=== PATIENT | female | born 1935 | race Caucasian/White ===

== ENCOUNTER 2021-09-04 00:33 | Inpatient (IN) | payer MEDICARE, BC ==
[~2021-09-04] VITALS: Ht 142.2 cm; Wt 62.6 kg
--- NOTE | 2021-09-04 01:00 | NUR ---
pt A/o x3 able to speak in complete sentences denies c/p. On RA pt is 83 percent placed on 4 liters nc sat is 92 percent.
--- NOTE | 2021-09-04 01:10 | NUR ---
Dr. Hu at bedside for MSE
[2021-09-04] MEDS ORDERED: IV NORMAL SALINE 1000 ML BAG IV ONE (01:15)
[2021-09-04] MEDS ORDERED: AZITHROMYCIN IV 500 MG in IV DEXTROSE 5% 250 ML IV ONE (01:15)
[2021-09-04] MEDS ORDERED: levoFLOXacin 750MG/D5W 150 ML IV ONE ×2 (01:15→01:29)
[2021-09-04 01:18] LABS: HEMATOCRIT 32.7 % (31.2-41.9); MEAN CORPUSCULAR HEMOGLOBIN 32.6 uug (24.7-32.8); MEAN CORPUSCULAR VOLUME 100.2 fL (75.5-95.3); PLATELET COUNT (AUTO) 629 K/uL (179-408)
[2021-09-04] MEDS ORDERED: AMLO2.5T4 PO (01:20)
[2021-09-04] MEDS ORDERED: POTA10TA10 PO (01:21)
[2021-09-04] MEDS ORDERED: RAMI2.5C55 PO (01:21)
[2021-09-04] MEDS ORDERED: HYDR12.55 PO (01:21)
--- NOTE | 2021-09-04 01:21 | NUR ---
Patient does not remember all home medication and doses.
[2021-09-04] MEDS ORDERED: AZITHROMYCIN 500MG/ D5W 250ML IVPB **ER PYXIS ONLY IV ONE (01:29)
--- NOTE | 2021-09-04 01:30 | NUR ---
pt daughter at bedside speaking with Dr. Hu.
[2021-09-04 01:32] LABS: ABG BASE EXCESS -4.9 mmol/L; ABG PCO2 31.1 mmHg (35.0-45.0); ABG PH 7.403 (7.350-7.450); ABG PO2 72.6 mmHg (75.0-100.0); ABG SITE RIGHT RADIAL; ABG TOTAL HEMOGLOBIN 10.8 G/dL (12.0-16.0); COHb 0.8 % (0.5-1.5); MetHb 0.3 % (0.0-1.5); O2Hb 93.2 % (94.0-97.0); VENT MODE Nasal Cannula
--- NOTE | 2021-09-04 01:35 | NUR ---
radiology at bedside.
[2021-09-04 01:37] LABS: BILIRUBIN,DIRECT 0.1 mg/dL (0.0-0.2); BILIRUBIN,TOTAL 0.4 mg/dL (0.2-1.0); CREATININE 1.2 mg/dL (0.6-1.3); POTASSIUM 5.6 mmol/L (3.5-5.1); TOTAL PROTEIN, SERUM 7.1 g/dL (6.4-8.2)
--- NOTE | 2021-09-04 02:30 | NUR ---
pt awake alert denies pain.
[2021-09-04] MEDS ORDERED: RIVA15TA PO (02:46)
--- NOTE | 2021-09-04 02:46 | NUR ---
Paged Epic panel conveyor line battery charger, waiitng for Gail Strong ENGAGEMENT LEAD to call back.
--- NOTE | 2021-09-04 03:02 | NUR ---
Gail Strong OUTCOME ANALYST accepted pateint to [facility].
--- NOTE | 2021-09-04 03:52 | NUR ---
pt transferrd to a hospital bed.
--- NOTE | 2021-09-04 05:46 | NUR ---
pt repositioned denies pain. Continues on 6 liters nc.
[2021-09-04] MEDS: CEFTRIAXONE 1 G in IV DEXTROSE 5% 50 ML IV SCH (06:54)
[2021-09-04] MEDS ORDERED: CEFTRIAXONE /D5W 50ML IVPB **ER PYXIS IV ONE (07:02)
--- NOTE | 2021-09-04 07:09 | NUR ---
report given to Farhat MARVIN.
[2021-09-04 07:20] LABS: MEAN CORPUSCULAR VOLUME 100.7 fL (75.5-95.3); PLATELET COUNT (AUTO) 470 K/uL (179-408)
[2021-09-04 07:27] LABS: CREATININE 1.1 mg/dL (0.6-1.3); POTASSIUM 4.8 mmol/L (3.5-5.1)
[2021-09-04 07:43] LABS: BILIRUBIN,TOTAL 0.3 mg/dL (0.2-1.0); MAGNESIUM 1.4 mg/dL (1.8-2.4); PHOSPHOROUS 3.7 mg/dL (2.5-4.9); TOTAL PROTEIN, SERUM 5.9 g/dL (6.4-8.2)
--- NOTE | 2021-09-04 07:44 | NUR ---
Changed pt's diaper.
[2021-09-04 07:45] LABS: THYROID STIMULATING HORMONE 3.208 mIU/mL (0.358-3.740)
--- NOTE | 2021-09-04 08:28 | NUR ---
Called report to SHAVONNE Coleman.
--- NOTE | 2021-09-04 08:35 | NUR ---
Received patient report from SHAVONNE Dougherty. Patient arrived to unit on [facility] [place] receiving 5L of Oxygen via Nasal Canula. Bed left in lowest position with call light within reach. Will continue to monitor patient throughout shift.
[2021-09-04 09:05] VITALS: BP 116/55
[2021-09-04] MEDS: MAGNESIUM SULFATE/D5W 100 ML IV SCH ×4 (10:29→13:58)
[2021-09-04 11:50] VITALS: BP 114/57
[2021-09-04] MEDS ORDERED: DEXTROSE 50% 50 ML DISP.SYRIN IV PRN (14:30)
[2021-09-04 16:00] VITALS: BP 129/50
[2021-09-04] MEDS ORDERED: Z GUARD REMEDY PASTE 57 GM TUBE TOP PRN (16:30)
[2021-09-04] MEDS: BLOOD SUGAR DIAGNOSTIC 1 EACH STRIP VI SCH ×2 (16:36→21:25)
[2021-09-04] MEDS: INSULIN REGULAR, HUMAN 300 UNIT/3 ML VIAL SQ PRN (16:39)
[2021-09-04] MEDS: RIVAROXABAN 10 MG TABLET PO SCH (17:46)
[2021-09-04 20:00] VITALS: BP 127/62
[2021-09-04] MEDS: IV D5 1/2 NS 1000 ML 1,000 ML IV PRN (23:20)
--- NOTE | 2021-09-04 23:45 | NUR ---
Patient in bed AALox4 , noted with productive cough.No s/s of respiratory distress noted. O2 at 4LPM via NC saturating at 95%. notified of patient's cough.New ordered received noted and carried out.Will continue to monitor.
[2021-09-05] VITALS: BP 117/58
[2021-09-05] MEDS: GUAIFENESIN SUGAR FREE 100 MG/5 ML UDC PO PRN (00:01)
[2021-09-05] MEDS: IPRATROPIUM BROMIDE 0.5 MG/2.5 ML NEBU NEB PRN ×2 (01:04→10:59)
[2021-09-05] MEDS: ALBUTEROL SULFATE 2.5 MG/ 0.5 ML NEBU NEB PRN ×2 (01:05→10:59)
[2021-09-05] MEDS: CEFTRIAXONE 1 G in IV DEXTROSE 5% 50 ML IV SCH (02:58)
[2021-09-05 04:00] VITALS: BP 118/63
[2021-09-05] MEDS: BLOOD SUGAR DIAGNOSTIC 1 EACH STRIP VI SCH ×4 (06:49→20:46)
[2021-09-05 06:53] LABS: HEMATOCRIT 25.8 % (31.2-41.9); MEAN CORPUSCULAR HEMOGLOBIN 32.9 uug (24.7-32.8); MEAN CORPUSCULAR VOLUME 100.6 fL (75.5-95.3); PLATELET COUNT (AUTO) 343 K/uL (179-408)
[2021-09-05 07:07] LABS: CREATININE 0.8 mg/dL (0.6-1.3); MAGNESIUM 2.1 mg/dL (1.8-2.4); PHOSPHOROUS 3.6 mg/dL (2.5-4.9); POTASSIUM 3.9 mmol/L (3.5-5.1)
--- NOTE | 2021-09-05 08:00 | NUR ---
RECEIVED PATIENT IN BED AWAKE ALERT AND ORIENTED WITH O2 AT 4L/M BY NASAL CANULLA WITH NO SHORTNESS OF BREATH AT THIS TIME.NO S/S OF HYPO/HYPERGLYCEMIC REACTIONS AT THIS TIME.REMAIN ON IVF WITH NO S/S OF INFILTERATION ON SITE.TELE IS SR CALL LIGHTS AND HER PERSONAL BELONGINGS ARE WITHIN EASY REACH WILL CONTINUE TO OBSERVE..
[2021-09-05] MEDS: INSULIN REGULAR, HUMAN 300 UNIT/3 ML VIAL SQ PRN ×3 (08:22→17:21)
[2021-09-05 12:00] VITALS: BP 135/66
[2021-09-05] MEDS ORDERED: TAMSULOSIN HCL 0.4 MG CAP.SR.24H PO PRN (12:30)
[2021-09-05] MEDS ORDERED: BENZONATATE 100 MG CAPSULE PO PRN (12:45)
[2021-09-05] MEDS: BENZONATATE 100 MG CAPSULE PO SCH ×2 (12:58→21:02)
--- NOTE | 2021-09-05 13:01 | NUR ---
DR QUIROZ HERE TO SEE PATIENT AND STATED THAT SHE WANTS PULMONARY CONSULT ON THIS PATIENT BUT SINCE DR CUNNINGHAM HAS MADE ROUNDS ALREADY IT WILL BE OKAY FOR DR BACH TO SEE PATIENT TOMORROW WILL ENDORSE.PATIENT IS COUGHING ON AND OFF MD AWARE WITH NEW ORDER FOR SHAY QUINTEROS AND NOTED.
--- NOTE | 2021-09-05 15:00 | NUR ---
CALL RECEIVED FROM [facility] TRUCK DRIVER STATED THAT PATIENT WILL BE TRANSFERED TO [facility] PER PATIENTS REQUEST STATED WILL BE PICKED UP ABOUT 1700.PATIENTS DAUGHTER LIZZETH HERE AND AWARE.
[2021-09-05 16:01] VITALS: BP 137/69
--- NOTE | 2021-09-05 16:30 | NUR ---
PER THAD AUTOMOBILE RADIO REPAIRER [facility] HAS NOT CALLED YET WITH ROOM NUMBER WILL PLACE THE AMBULANCE ON WILL CALL AND SINCE SHE IS NOW OFF [facility] WILL CALL US WITH INFORMATION RE BED ASSIGNMENT PATIENTS DAUGHTER HERE AND AWARE
[2021-09-05] MEDS: RIVAROXABAN 10 MG TABLET PO SCH (17:18)
--- NOTE | 2021-09-05 18:16 | NUR ---
NO CALLS YET FROM [facility] WILL ENDORSE.
[2021-09-05] MEDS: Z GUARD REMEDY PASTE 57 GM TUBE TOP SCH (20:36)
[2021-09-05] MEDS: IV D5 1/2 NS 1000 ML 1,000 ML IV PRN (20:39)
[2021-09-05 20:50] VITALS: BP 124/66
[2021-09-05] MEDS ORDERED: ALPRAZOLAM 0.25 MG TABLET PO ONE (21:00)
[2021-09-06 00:31] VITALS: BP 123/48
[2021-09-06] MEDS: CEFTRIAXONE 1 G in IV DEXTROSE 5% 50 ML IV SCH (03:41)
[2021-09-06] MEDS: GUAIFENESIN SUGAR FREE 100 MG/5 ML UDC PO PRN (03:48)
[2021-09-06 04:35] VITALS: BP 154/71
[2021-09-06] MEDS ORDERED: FUROSEMIDE 40 MG/4 ML VIAL IV ONE (06:15)
[2021-09-06] MEDS: methylPREDNISolone SOD SUCC 40 MG/ML VIAL IV SCH ×2 (06:17→17:30)
[2021-09-06] MEDS: BENZONATATE 100 MG CAPSULE PO SCH ×3 (06:17→21:28)
[2021-09-06] MEDS: BLOOD SUGAR DIAGNOSTIC 1 EACH STRIP VI SCH ×4 (06:34→20:51)
[2021-09-06 07:47] LABS: HEMATOCRIT 29.8 % (31.2-41.9); MEAN CORPUSCULAR HEMOGLOBIN 32.9 uug (24.7-32.8); MEAN CORPUSCULAR VOLUME 99.9 fL (75.5-95.3); PLATELET COUNT (AUTO) 355 K/uL (179-408)
--- NOTE | 2021-09-06 07:50 | NUR ---
Pt very anxious, slept intermittently. Called Ej last night for update on bed, still none available. Pt started to desat to 77% this morning, p-laced on 8L simple mask and is now satting at 93%. Gail Strong STATISTICS MANAGER notified with orders for Solumedrol 40mg BID and Lasix 40mg X 1. Pt able to make needs known. IV site intact. Denies chest pain. Will endorse to day shift.
[2021-09-06 08:02] LABS: CREATININE 0.7 mg/dL (0.6-1.3); MAGNESIUM 1.6 mg/dL (1.8-2.4); PHOSPHOROUS 3.1 mg/dL (2.5-4.9); POTASSIUM 3.4 mmol/L (3.5-5.1)
[2021-09-06] MEDS: INSULIN REGULAR, HUMAN 300 UNIT/3 ML VIAL SQ PRN ×3 (08:18→17:30)
[2021-09-06] MEDS: Z GUARD REMEDY PASTE 57 GM TUBE TOP SCH ×2 (08:20→20:49)
--- NOTE | 2021-09-06 08:22 | NUR ---
PATIENT IS IN BED VERY ANXIOUS YELLING OUT UNABLE TO REDIRECT ON O2 BY MASK AT 8L/M SAT IS 93-[address] THIS TIME [address] MARYA KEMP IS HERE AND AWARE AND STATED TO GIVE HER XANAX AGAIN ONE TIME ORDER AND NOTED IV SITE IS NOT FUNCTIONING WITH ORDER FOR MID LINE AND NOTED RESIST COATER DEVELOPER NOTIFIED.
[2021-09-06] MEDS ORDERED: ALPRAZOLAM 0.25 MG TABLET PO ONE (08:30)
--- NOTE | 2021-09-06 08:37 | NUR ---
REMAIN ANXIOUS FIXED AND MADE COMFORTABLE MEDICATED WITH XANAX ORDERED O2 WAS CHANGED TO NASAL CANULA SO SHE CAN EAT HER BREAKFAST APPETITE IS POOR SAT IS 87 CHANGED TO SIMPLE MASK AT 10 LITERS AT THIS TIME
--- NOTE | 2021-09-06 09:40 | NUR ---
PATIENTS DAUGHTER LIZZETH HERE UPDATED HER ON HER MOMS CONDITION HAS ORDER FOR MAGNESSIUM BUT HAS NO IV SITE DUE TO UNABLE TO REINSERT AWAITING FOR THE MID LINE NURSE TO COME IN AND INSERT A MIDLINE.
[2021-09-06] MEDS ORDERED: POTASSIUM CHLORIDE 20 MEQ TAB.PRT.SR PO ONE (10:00)
--- NOTE | 2021-09-06 10:19 | NUR ---
MAG LEVEL IS 1.6 AND POTASSIUM IS 3.4 WITH ORDERS STILL AWAITING FOR THE MID LINE NURSE PATIENT HAS NO IV ACCESS AT THIS TIME.
[2021-09-06] MEDS: ALBUTEROL SULFATE 2.5 MG/ 0.5 ML NEBU NEB PRN (10:43)
[2021-09-06] MEDS: IPRATROPIUM BROMIDE 0.5 MG/2.5 ML NEBU NEB PRN (10:43)
[2021-09-06 12:00] VITALS: BP 131/71
--- NOTE | 2021-09-06 12:16 | NUR ---
PATIENT IS GETTING VERY ANXIOUS AND VERY DEPRESSED FAMILY AT THE BEDSIDE AND ASKING FOR MORE XANAX CALLED DR QUIROZ WITH ORDER TO GIVE ATIVAN ONE MG ONE TIME AND NOTED
[2021-09-06] MEDS ORDERED: LORAZEPAM 1 MG TABLET PO ONE (12:30)
[2021-09-06 13:52] LABS: LYMPHOCYTES % (MANUAL) 15 % (20-40); MONOCYTES % (MANUAL) 4 % (2-10); NEUTROPHILS % (MANUAL) 81 % (42-75)
--- NOTE | 2021-09-06 14:02 | NUR ---
DR QUIROZ HERE SEEN PATIENT WITH NEW ORDERS AND NOTED.DAUGHTER AT BEDSIDE AND AWARE OF THE PLAN OF CARE.
[2021-09-06 16:16] VITALS: BP 138/83
--- NOTE | 2021-09-06 16:30 | NUR ---
STILL AWAITING FOR AVAILABILITY OF BED FROM [facility] PER ALTERATION TAILOR [facility] WILL CALL WHEN THEY HAVE BED AVAILABLE PATIENTS DAUGHTER STEPHANIE HERE AND AWARE.
--- NOTE | 2021-09-06 17:41 | NUR ---
PATIENTS OWN MEDICATION XALATAN RECEIVED DR GABRIELLA BA SENT TO THE PHARMACY.
--- NOTE | 2021-09-06 17:45 | NUR ---
STILL AWAITING FOR MIDLINE PLACEMENT AT THIS TIME BLASTING HELPER AWARE STILL UNABLE TO INFUSE THE MAGNESSIUM ORDERED.
[2021-09-06] MEDS: MAGNESIUM SULFATE/D5W 100 ML IV SCH ×2 (18:14→19:53)
--- NOTE | 2021-09-06 18:14 | NUR ---
MID LINE NURSE HERE AND GAUGE 18 INSERTED TO HER RIGHT FOREARM AND MAGNESSIUM ONE GRAM STARTED AT THIS TIME ORDERED.
[2021-09-06] MEDS: ALBUTEROL SULFATE 2.5 MG/ 0.5 ML NEBU NEB SCH (20:05)
[2021-09-06 20:37] VITALS: BP 132/76
[2021-09-06] MEDS: LATANOPROST EACHEYE SCH (20:49)
[2021-09-07] MEDS: ALBUTEROL SULFATE 2.5 MG/ 0.5 ML NEBU NEB SCH ×4 (02:05→19:12)
--- NOTE | 2021-09-07 02:13 | NUR ---
Yazmin from [facility] [phone] called that they don't have no bed available up to this time. Will endorse accordingly tomorrow.
--- NOTE | 2021-09-07 02:21 | NUR ---
Patient O2 titrated to 10L with simple mask saturating 96%.
[2021-09-07] MEDS: CEFTRIAXONE 1 G in IV DEXTROSE 5% 50 ML IV SCH (02:59)
[2021-09-07 03:53] VITALS: BP 113/60
[2021-09-07] MEDS: BENZONATATE 100 MG CAPSULE PO SCH ×3 (06:16→21:20)
[2021-09-07] MEDS: BLOOD SUGAR DIAGNOSTIC 1 EACH STRIP VI SCH ×4 (06:37→20:42)
--- NOTE | 2021-09-07 06:52 | NUR ---
Shift End Report: Vs stable. No complaint presented. No apparent distress noted. All needs attended and met. No s/s of hypo/hyperglycemia. Close physical /visual supervision rendered for safety. Patient attempted several times to get out of bed. Safety measures and fall prevention maintained. Continue care as planned.
[2021-09-07 06:59] LABS: CREATININE 0.7 mg/dL (0.6-1.3); MAGNESIUM 2.3 mg/dL (1.8-2.4); POTASSIUM 3.6 mmol/L (3.5-5.1)
[2021-09-07] MEDS: IPRATROPIUM BROMIDE 0.5 MG/2.5 ML NEBU NEB PRN (08:19)
[2021-09-07] MEDS: methylPREDNISolone SOD SUCC 40 MG/ML VIAL IV SCH ×2 (08:37→16:55)
[2021-09-07] MEDS: Z GUARD REMEDY PASTE 57 GM TUBE TOP SCH ×2 (08:37→20:47)
--- NOTE | 2021-09-07 10:00 | NUR ---
Dr hartman here to see patient. New order received and carried out. Pt is in no acute distress. Frequent turning q2 hrs implemented. Aspiration precaution implemented. PT tolerating Simple mask@ 10Lit with sat of 97% Call light is within reach.
--- NOTE | 2021-09-07 10:05 | NUR ---
civil cad tech talked to Dr Parikh . Dr Parikh said since the patient is on Xirolto, he needed 2 days holding period. Unable to perform Thoracentesis today. The tech will contact Dr Lovell for procedure to perform tomorrow. SHAVONNE Bedolla noted.
[2021-09-07 12:00] VITALS: BP 123/63
[2021-09-07] MEDS: INSULIN REGULAR, HUMAN 300 UNIT/3 ML VIAL SQ PRN ×2 (12:21→16:59)
[2021-09-07 16:00] VITALS: BP 130/67
[2021-09-07] MEDS: LORAZEPAM 0.5 MG TABLET PO PRN ×2 (17:09→23:23)
--- NOTE | 2021-09-07 19:30 | NUR ---
Receive patient lying in bed. AAOx2-3. In no acute distress. Denies any pain or SOB. On O2 at 10LPM via simple mask in place. O2 sat at 93%. HOB elevated. Midline on right upper arm intact and patent. NSR on tele with HR of 99/min. 1:1 sitter on site. No behavioral issues noted at this time. Patient calm and cooperative. Needs assessed and attended to. Safety measure initiated. Continue to monitor.
[2021-09-07 20:00] VITALS: BP 153/72
[2021-09-07] MEDS: LATANOPROST EACHEYE SCH (20:45)
[2021-09-07] MEDS: INSULIN REGULAR, HUMAN 300 UNITS/3 ML VIAL SQ PRN (20:46)
[2021-09-08] VITALS: BP 145/75
[2021-09-08] MEDS: ALBUTEROL SULFATE 2.5 MG/ 0.5 ML NEBU NEB SCH ×4 (00:35→19:31)
[2021-09-08] MEDS: CEFTRIAXONE 1 G in IV DEXTROSE 5% 50 ML IV SCH (02:43)
--- NOTE | 2021-09-08 03:24 | NUR ---
Telephone call from Yazmin from [facility] and stated that they are at full capacity at this time and does not have a bed for patient. Will relay message to day shift RN to inform CM.
[2021-09-08 05:18] VITALS: BP 140/73
[2021-09-08] MEDS: BENZONATATE 100 MG CAPSULE PO SCH ×3 (06:00→21:02)
[2021-09-08] MEDS: LORAZEPAM 0.5 MG TABLET PO PRN ×3 (06:01→22:54)
--- NOTE | 2021-09-08 06:21 | NUR ---
AAOx2 with periods of confusion this AM. Lorazepam 0.5mg PO given q6hrs PRN per order for anxiety. In no acute distress. Denies any pain or SOB. On O2 at 10LPM via simple mask in place. O2 sat at 93%. HOB elevated. Midline on right upper arm intact and patent. No adverse reaction noted from IV antibiotics. Sinus tachy on tele with HR of 102/min. 1:1 sitter on site. Needs assessed and attended to. Safety measure maintained.
[2021-09-08] MEDS: BLOOD SUGAR DIAGNOSTIC 1 EACH STRIP VI SCH ×4 (06:32→20:36)
[2021-09-08] MEDS: IPRATROPIUM BROMIDE 0.5 MG/2.5 ML NEBU NEB PRN (07:30)
[2021-09-08 07:50] LABS: MEAN CORPUSCULAR HEMOGLOBIN 32.9 uug (24.7-32.8); PLATELET COUNT (AUTO) 371 K/uL (179-408)
[2021-09-08 08:00] VITALS: BP 157/78
[2021-09-08 08:00] LABS: CREATININE 0.7 mg/dL (0.6-1.3); MAGNESIUM 2.1 mg/dL (1.8-2.4); PHOSPHOROUS 2.8 mg/dL (2.5-4.9); POTASSIUM 3.5 mmol/L (3.5-5.1)
[2021-09-08] MEDS: methylPREDNISolone SOD SUCC 40 MG/ML VIAL IV SCH ×2 (08:31→16:04)
[2021-09-08] MEDS: Z GUARD REMEDY PASTE 57 GM TUBE TOP SCH ×2 (08:33→20:40)
[2021-09-08 11:30] VITALS: BP 165/78
[2021-09-08 16:00] VITALS: BP 150/80
[2021-09-08] MEDS: INSULIN REGULAR, HUMAN 300 UNIT/3 ML VIAL SQ PRN (16:02)
[2021-09-08] MEDS: VANCOMYCIN IV 1,000 MG in IV DEXTROSE 5% 250 ML IV SCH (17:33)
--- NOTE | 2021-09-08 19:30 | NUR ---
Receive patient lying in bed. Asleep, but arouse to verbal stimuli. Alert x2 with periods of confusion. In no apparent distress. No complain of pain or SOB. On O2 at 10LPM via simple mask in place. O2 sat at 96%. HOB elevated. Noted with occasional productive cough and ab;le to expectorate phlegm. Midline on right upper arm intact and patent. NSR on tele with HR of 96/min. 1:1 sitter on site. Patient calm and cooperative. Needs assessed and attended to. Safety measure initiated. Continue to monitor.
[2021-09-08 19:32] VITALS: BP 144/60
[2021-09-08] MEDS: LATANOPROST EACHEYE SCH (20:36)
[2021-09-08] MEDS: INSULIN REGULAR, HUMAN 300 UNITS/3 ML VIAL SQ PRN (20:39)
[2021-09-08] MEDS ORDERED: INSULIN GLARGINE,HUM 300 UNITS/3 ML CARTRIDGE SQ SCH (21:00)
[2021-09-08] MEDS: GUAIFENESIN SUGAR FREE 100 MG/5 ML UDC PO PRN (22:54)
[2021-09-09 00:07] VITALS: BP 136/85
[2021-09-09] MEDS: ALBUTEROL SULFATE 2.5 MG/ 0.5 ML NEBU NEB SCH ×4 (01:07→19:52)
[2021-09-09 04:00] VITALS: BP 134/70
[2021-09-09] MEDS: BENZONATATE 100 MG CAPSULE PO SCH ×3 (06:17→21:07)
--- NOTE | 2021-09-09 06:24 | NUR ---
AAOx2 with periods of confusion. Lorazepam 0.5mg PO given x1 and effective. patient slept well after. In no acute distress. Denies any pain or SOB. On O2 at 10LPM via simple mask in place. O2 sat at 96%. Midline on right upper arm intact and patent. NSR on tele with HR of 85/min. 1:1 sitter on site. Safety measure maintained.
[2021-09-09] MEDS: BLOOD SUGAR DIAGNOSTIC 1 EACH STRIP VI SCH ×4 (06:36→20:48)
[2021-09-09] MEDS: IPRATROPIUM BROMIDE 0.5 MG/2.5 ML NEBU NEB PRN ×3 (07:53→19:52)
--- NOTE | 2021-09-09 08:00 | NUR ---
Pt is in no acute distress. Frequent turning q 2 hrs implemented. Sitter at bedside. Aspiration precaution implemented. Call light light is within reach.
[2021-09-09] MEDS: Z GUARD REMEDY PASTE 57 GM TUBE TOP SCH ×2 (08:18→20:48)
[2021-09-09] MEDS: methylPREDNISolone SOD SUCC 40 MG/ML VIAL IV SCH ×2 (08:18→17:44)
[2021-09-09] MEDS: INSULIN REGULAR, HUMAN 300 UNIT/3 ML VIAL SQ PRN ×3 (08:44→17:50)
--- NOTE | 2021-09-09 12:00 | NUR ---
PT tolerated physical therapy session. Pt remains on 10lit n/c with sat of 97%.
[2021-09-09] MEDS: LORAZEPAM 0.5 MG TABLET PO PRN ×2 (12:31→18:51)
[2021-09-09] MEDS: INSULIN GLARGINE,HUM 300 UNITS/3 ML CARTRIDGE SQ SCH ×2 (12:46→20:52)
[2021-09-09 15:35] LABS: *BILIRUBIN,URIN NEGATIVE (NEGATIVE); *BLOOD, URINE NEGATIVE (NEGATIVE); *CLARITY,URINE CLEAR (CLEAR); *COLOR,URINE YELLOW (YELLOW); *KETONES,URINE NEGATIVE (NEGATIVE); *UROBILINOGEN,URINE 0.2 E.U./dl (NORMAL); LEUKOCYTE ESTERASE ,URINE NEGATIVE (NEGATIVE); NITRITE, URINE NEGATIVE (NEGATIVE); PH,URINE 6.5 (5.0-8.0); UGLUCOSE TRACE (NEGATIVE)
[2021-09-09 15:44] LABS: HEMATOCRIT 30.9 % (31.2-41.9); MEAN CORPUSCULAR HEMOGLOBIN 32.7 uug (24.7-32.8); MEAN CORPUSCULAR VOLUME 98.4 fL (75.5-95.3); PLATELET COUNT (AUTO) 312 K/uL (179-408)
[2021-09-09 15:57] LABS: CREATININE 0.7 mg/dL (0.6-1.3); MAGNESIUM 1.6 mg/dL (1.8-2.4); PHOSPHOROUS 2.2 mg/dL (2.5-4.9); POTASSIUM 2.9 mmol/L (3.5-5.1)
[2021-09-09 16:32] VITALS: BP 150/71
[2021-09-09] MEDS ORDERED: POTASSIUM CHLORIDE 20 MEQ TAB.PRT.SR PO ONE (17:00)
[2021-09-09] MEDS ORDERED: NEUTRA PHOS PACKET PO ONE (17:00)
[2021-09-09] MEDS: MAGNESIUM SULFATE/D5W 100 ML IV SCH ×2 (17:44→19:37)
--- NOTE | 2021-09-09 18:30 | NUR ---
Dr blair here to see patient and spoke with Karen daughter at bedside and gave update. Notice pt coughing when eating even with HOB @ 90 deg.
--- NOTE | 2021-09-09 19:30 | NUR ---
Receive patient lying in bed. AAOx2-3 with periods of forgetfulness. In no apparent distress. No complain of pain or SOB. On O2 at 10LPM via simple mask in place. O2 sat at 94%. No cough noted at this time. Midline on right upper arm intact and patent. NSR on tele with HR of 100/min. Needs assessed and attended to. Safety measure initiated and call light within reached.
[2021-09-09 20:00] VITALS: BP 124/83
[2021-09-09] MEDS: LATANOPROST EACHEYE SCH (20:47)
[2021-09-09] MEDS: INSULIN REGULAR, HUMAN 300 UNITS/3 ML VIAL SQ PRN (20:50)
[2021-09-09] MEDS: VANCOMYCIN IV 1,000 MG in IV DEXTROSE 5% 250 ML IV SCH (22:21)
[2021-09-10] VITALS: BP 160/77
[2021-09-10] MEDS: ALBUTEROL SULFATE 2.5 MG/ 0.5 ML NEBU NEB SCH ×5 (01:25→19:13)
[2021-09-10 04:00] VITALS: BP 128/80
--- NOTE | 2021-09-10 05:43 | NUR ---
Patient slept well last night. In no apparent distress. No complain of pain or SOB. On O2 at 10LPM via simple mask in place. O2 sat at 95%. No cough noted. Midline on right upper arm intact and patent. NO adverse effect noted from IV antibiotic. NSR on tele with HR of 81/min. Safety measure maintained and call light within reached.
[2021-09-10] MEDS: BENZONATATE 100 MG CAPSULE PO SCH ×3 (06:12→21:34)
[2021-09-10] MEDS: BLOOD SUGAR DIAGNOSTIC 1 EACH STRIP VI SCH ×4 (06:34→20:59)
--- NOTE | 2021-09-10 07:33 | NUR ---
Received patient report from Emilee MARVIN. Received patient sleeping and resting comfortably in bed. Patient is currently receiving 10L of oxygen via Mask. Bed left in lowest position with call light within reach. Comfort measures provided. Will continue to monitor patient throughout shift.
[2021-09-10 07:55] LABS: ABG BASE EXCESS 10.1 mmol/L; ABG HCO3 35.1 mmol/L; ABG PCO2 49.4 mmHg (35.0-45.0); ABG PH 7.469 (7.350-7.450); ABG PO2 52.5 mmHg (75.0-100.0); ABG SITE RIGHT RADIAL; ABG TOTAL HEMOGLOBIN 10.9 G/dL (12.0-16.0); COHb 0.1 % (0.5-1.5); MetHb 0.3 % (0.0-1.5); O2Hb 86.8 % (94.0-97.0)
[2021-09-10] MEDS: methylPREDNISolone SOD SUCC 40 MG/ML VIAL IV SCH ×2 (08:01→16:25)
[2021-09-10] MEDS: INSULIN GLARGINE,HUM 300 UNITS/3 ML CARTRIDGE SQ SCH ×2 (08:03→21:06)
[2021-09-10] MEDS: INSULIN REGULAR, HUMAN 300 UNIT/3 ML VIAL SQ PRN ×2 (08:05→11:46)
[2021-09-10] MEDS: IPRATROPIUM BROMIDE 0.5 MG/2.5 ML NEBU NEB PRN ×2 (08:20→13:58)
[2021-09-10 10:19] LABS: HEMATOCRIT 35.7 % (31.2-41.9); MEAN CORPUSCULAR HEMOGLOBIN 33.1 uug (24.7-32.8); MEAN CORPUSCULAR VOLUME 101.5 fL (75.5-95.3); PLATELET COUNT (AUTO) 209 K/uL (179-408)
[2021-09-10] MEDS: Z GUARD REMEDY PASTE 57 GM TUBE TOP SCH ×2 (10:36→21:10)
[2021-09-10 12:00] VITALS: BP 154/76
[2021-09-10] MEDS: LORAZEPAM 0.5 MG TABLET PO PRN ×2 (13:10→20:53)
[2021-09-10 16:17] VITALS: BP 155/77
[2021-09-10 20:00] VITALS: BP 153/74
[2021-09-10] MEDS: LATANOPROST EACHEYE SCH (21:02)
[2021-09-10] MEDS: INSULIN REGULAR, HUMAN 300 UNITS/3 ML VIAL SQ PRN (21:06)
[2021-09-11] VITALS: BP 152/71
[2021-09-11] MEDS: ALBUTEROL SULFATE 2.5 MG/ 0.5 ML NEBU NEB SCH ×4 (00:34→19:40)
[2021-09-11 04:00] VITALS: BP 158/87
[2021-09-11] MEDS: VANCOMYCIN IV 1,000 MG in IV DEXTROSE 5% 250 ML IV SCH (05:15)
[2021-09-11] MEDS: BENZONATATE 100 MG CAPSULE PO SCH ×3 (06:21→21:54)
[2021-09-11] MEDS: BLOOD SUGAR DIAGNOSTIC 1 EACH STRIP VI SCH ×4 (07:56→20:10)
[2021-09-11] MEDS: IPRATROPIUM BROMIDE 0.5 MG/2.5 ML NEBU NEB PRN ×3 (08:19→19:40)
[2021-09-11 09:06] LABS: HEMATOCRIT 31.1 % (31.2-41.9); MEAN CORPUSCULAR HEMOGLOBIN 33.2 uug (24.7-32.8); MEAN CORPUSCULAR VOLUME 98.3 fL (75.5-95.3); PLATELET COUNT (AUTO) 291 K/uL (179-408)
[2021-09-11 09:20] LABS: BILIRUBIN,TOTAL 0.4 mg/dL (0.2-1.0); CREATININE 0.6 mg/dL (0.6-1.3); POTASSIUM 3.4 mmol/L (3.5-5.1)
[2021-09-11] MEDS: methylPREDNISolone SOD SUCC 40 MG/ML VIAL IV SCH ×2 (09:49→20:02)
[2021-09-11] MEDS: CARVEDILOL 3.125 MG TABLET PO SCH ×2 (09:49→17:13)
[2021-09-11] MEDS: LORAZEPAM 0.5 MG TABLET PO PRN ×3 (09:50→21:54)
[2021-09-11] MEDS: INSULIN GLARGINE,HUM 300 UNITS/3 ML CARTRIDGE SQ SCH ×2 (09:52→20:09)
[2021-09-11] MEDS: Z GUARD REMEDY PASTE 57 GM TUBE TOP SCH ×2 (10:03→20:10)
[2021-09-11] MEDS: INSULIN REGULAR, HUMAN 300 UNIT/3 ML VIAL SQ PRN (11:38)
[2021-09-11 12:00] VITALS: BP 156/77
[2021-09-11] MEDS: CEFTRIAXONE 2 G in IV DEXTROSE 5% 100 ML IV SCH (14:22)
--- NOTE | 2021-09-11 14:45 | NUR ---
Pt is a/o x 3-4 saturating with 93% on 10 L simple mask. Pt has cough and anxiousness. Provide PRN ativan Q6H. Pt is cooperative with care and takes medications whole. Family is at bedside at this time. Critical lab value CO2 of 41 reported to MD Young. Pt's primary oncologist is Dr. Bisi Palacios . Provided MD contact number per family request. Comfort measures provided, call light within reach. Will continue to monitor pt.
[2021-09-11] MEDS ORDERED: POTASSIUM CHLORIDE 10 MEQ TAB.PRT.SR PO ONE (15:45)
[2021-09-11 16:13] VITALS: BP 155/79
--- NOTE | 2021-09-11 19:30 | NUR ---
Patient received in bed, in no acute distress. AAO to person and place with some forgetfulness and confusion on time and situation. Teaching regarding health treatment provided, patient will need reinforcement. Denies any pain. On 10 L 02 via simple mask. Noted to remove mask repeatedly, encouraged to keep mask on to maintain 02 sats. 02 sats 96% at rest. Right upper arm midline is intact and patent. Safety measures initiated. Needs assessed and attended, call light within reach.
[2021-09-11] MEDS: LATANOPROST EACHEYE SCH (20:01)
[2021-09-11] MEDS: INSULIN REGULAR, HUMAN 300 UNITS/3 ML VIAL SQ PRN (20:10)
[2021-09-11 20:43] VITALS: BP 149/72
[2021-09-12] MEDS: ALBUTEROL SULFATE 2.5 MG/ 0.5 ML NEBU NEB SCH ×4 (01:06→21:16)
[2021-09-12] MEDS: IPRATROPIUM BROMIDE 0.5 MG/2.5 ML NEBU NEB PRN ×3 (01:06→13:30)
[2021-09-12 04:20] VITALS: BP 158/90
[2021-09-12] MEDS: BENZONATATE 100 MG CAPSULE PO SCH ×3 (06:34→21:04)
[2021-09-12] MEDS: BLOOD SUGAR DIAGNOSTIC 1 EACH STRIP VI SCH ×4 (06:34→20:50)
--- NOTE | 2021-09-12 06:49 | NUR ---
Patient slept intermittently, noted with episodical agitation. AAO to person with some forgetfulness and confusion. Denies any pain. Continues on 10 L 02 via simple mask. Noted to remove mask repeatedly, monitored closely. Right upper arm midline is intact and patent. Safety measures continued. Needs assessed and attended, call light within reach.
[2021-09-12 07:46] VITALS: BP 159/68
[2021-09-12] MEDS: CARVEDILOL 3.125 MG TABLET PO SCH ×2 (08:23→18:55)
[2021-09-12] MEDS: methylPREDNISolone SOD SUCC 40 MG/ML VIAL IV SCH ×2 (08:23→20:44)
[2021-09-12] MEDS: INSULIN GLARGINE,HUM 300 UNITS/3 ML CARTRIDGE SQ SCH ×2 (08:25→20:53)
[2021-09-12] MEDS: Z GUARD REMEDY PASTE 57 GM TUBE TOP SCH ×2 (08:25→20:50)
[2021-09-12] MEDS ORDERED: FLUCONAZOLE 200 MG/NS 100ML IV 200 MG in PREMIXED 1 EACH IV ONE (10:12)
[2021-09-12] MEDS ORDERED: FLUCONAZOLE 100 MG TABLET PO ONE (10:45)
[2021-09-12 11:07] LABS: CREATININE 0.7 mg/dL (0.6-1.3); MAGNESIUM 1.9 mg/dL (1.8-2.4); PHOSPHOROUS 3.6 mg/dL (2.5-4.9); POTASSIUM 3.8 mmol/L (3.5-5.1)
[2021-09-12] MEDS: INSULIN REGULAR, HUMAN 300 UNIT/3 ML VIAL SQ PRN ×2 (11:52→16:20)
[2021-09-12] MEDS: VANCOMYCIN IV 1,000 MG in IV DEXTROSE 5% 250 ML IV SCH (12:30)
[2021-09-12] MEDS: LORAZEPAM 0.5 MG TABLET PO PRN ×2 (13:16→19:02)
--- NOTE | 2021-09-12 14:10 | NUR ---
Received patient lying in bed with simple mask on 10L saturating at 97%. AO x 3. MICHELLE Midline intact and patent. Able to make needs known. No signs of acute distress. Belongings and call lights within reach, safety measures initiated.
[2021-09-12] MEDS: CEFTRIAXONE 2 G in IV DEXTROSE 5% 100 ML IV SCH (14:57)
--- NOTE | 2021-09-12 15:09 | NUR ---
Dr. Young aware of Chest xray results from this am with changes since last xray. Also, made aware 02 sat drop to 89-90%. NNO.
[2021-09-12] MEDS: LATANOPROST EACHEYE SCH (20:46)
[2021-09-12 20:48] VITALS: BP 138/67
[2021-09-13] MEDS: ALBUTEROL SULFATE 2.5 MG/ 0.5 ML NEBU NEB SCH ×4 (01:30→22:28)
[2021-09-13] MEDS ORDERED: TRAZODONE 50 MG TABLET PO PRN (02:15)
[2021-09-13 04:20] VITALS: BP 158/72
[2021-09-13] MEDS: BENZONATATE 100 MG CAPSULE PO SCH ×3 (05:28→22:08)
--- NOTE | 2021-09-13 06:35 | NUR ---
Patient slept intermittently throught the night. On 10L simple mask saturating at 97% Compliant with medication and care. No signs of acute distress. Denies pain. Educated pt on importance of diet and nutrition. MRSA swab done. Call lights within reach, safety precautions maintained. Needs have been met. Will endorse to am shift
[2021-09-13] MEDS: BLOOD SUGAR DIAGNOSTIC 1 EACH STRIP VI SCH ×4 (07:08→20:38)
[2021-09-13 07:42] LABS: HEMATOCRIT 33.2 % (31.2-41.9); MEAN CORPUSCULAR HEMOGLOBIN 32.6 uug (24.7-32.8); MEAN CORPUSCULAR VOLUME 98.6 fL (75.5-95.3); PLATELET COUNT (AUTO) 234 K/uL (179-408)
[2021-09-13 07:52] LABS: BILIRUBIN,TOTAL 0.3 mg/dL (0.2-1.0); CREATININE 0.8 mg/dL (0.6-1.3); MAGNESIUM 1.6 mg/dL (1.8-2.4); PHOSPHOROUS 3.6 mg/dL (2.5-4.9); TOTAL PROTEIN, SERUM 5.8 g/dL (6.4-8.2)
[2021-09-13] MEDS: IPRATROPIUM BROMIDE 0.5 MG/2.5 ML NEBU NEB PRN ×2 (08:06→13:53)
[2021-09-13 08:16] VITALS: BP 162/80
[2021-09-13] MEDS: CARVEDILOL 3.125 MG TABLET PO SCH ×2 (08:46→17:15)
[2021-09-13] MEDS: methylPREDNISolone SOD SUCC 40 MG/ML VIAL IV SCH ×2 (08:46→21:01)
[2021-09-13] MEDS: LORAZEPAM 0.5 MG TABLET PO PRN ×3 (08:47→17:25)
[2021-09-13] MEDS: INSULIN GLARGINE,HUM 300 UNITS/3 ML CARTRIDGE SQ SCH ×2 (08:56→20:39)
[2021-09-13] MEDS: Z GUARD REMEDY PASTE 57 GM TUBE TOP SCH ×2 (08:57→20:40)
[2021-09-13] MEDS ORDERED: CLONIDINE-TTS 1 PATCH TD SCH (11:00)
[2021-09-13] MEDS: MAGNESIUM SULFATE/D5W 100 ML IV SCH ×2 (12:11→12:34)
[2021-09-13] MEDS: VANCOMYCIN IV 1,000 MG in IV DEXTROSE 5% 250 ML IV SCH (12:14)
[2021-09-13] MEDS: INSULIN REGULAR, HUMAN 300 UNIT/3 ML VIAL SQ PRN ×2 (12:21→17:33)
[2021-09-13 13:07] VITALS: BP 147/75
[2021-09-13] MEDS: CEFTRIAXONE 2 G in IV DEXTROSE 5% 100 ML IV SCH (13:50)
[2021-09-13 16:40] VITALS: BP 146/65
[2021-09-13 20:15] VITALS: BP 156/71
[2021-09-13] MEDS ORDERED: BISACODYL 10 MG SUPP.RECT RC PRN (20:15)
[2021-09-13] MEDS: DOCUSATE SODIUM 100 MG CAPSULE PO SCH (20:39)
[2021-09-13] MEDS: INSULIN REGULAR, HUMAN 300 UNITS/3 ML VIAL SQ PRN (20:41)
[2021-09-13] MEDS: LATANOPROST EACHEYE SCH (20:41)
--- NOTE | 2021-09-14 00:30 | NUR ---
patient refused suppository.
[2021-09-14] MEDS: LORAZEPAM 0.5 MG TABLET PO PRN ×2 (01:20→21:55)
[2021-09-14] MEDS: GUAIFENESIN SUGAR FREE 100 MG/5 ML UDC PO PRN ×2 (01:20→21:55)
[2021-09-14 04:15] VITALS: BP 143/72
[2021-09-14] MEDS: BENZONATATE 100 MG CAPSULE PO SCH ×3 (06:03→22:00)
[2021-09-14] MEDS: BLOOD SUGAR DIAGNOSTIC 1 EACH STRIP VI SCH ×5 (06:30→21:54)
--- NOTE | 2021-09-14 06:38 | NUR ---
patient awake in bed. slept well throughout the night. blood sugar 65 this am. asymptomatic. patient given orange juice. will continue to monitor and assess.
--- NOTE | 2021-09-14 07:02 | NUR ---
blood sugar rechecked 100.
[2021-09-14] MEDS: ALBUTEROL SULFATE 2.5 MG/ 0.5 ML NEBU NEB SCH ×2 (07:35→21:19)
[2021-09-14 07:45] LABS: HEMATOCRIT 33.2 % (31.2-41.9); MEAN CORPUSCULAR HEMOGLOBIN 32.3 uug (24.7-32.8); MEAN CORPUSCULAR VOLUME 98.2 fL (75.5-95.3); PLATELET COUNT (AUTO) 213 K/uL (179-408)
--- NOTE | 2021-09-14 08:00 | NUR ---
Received resting in bed, in no acute distress. AAO X3 with some forgetfulness on time and situation. On O2 treatment provided on 6 L via N/C sat 93% to 95%, tolerated well. Denies any pain. Right upper arm midline is intact and patent continue on ATB therapy IV. Safety measures in place. Needs attended, call light and need it items within reach.
[2021-09-14 08:05] LABS: PHOSPHOROUS 3.5 mg/dL (2.5-4.9)
[2021-09-14 08:24] LABS: CREATININE 0.8 mg/dL (0.6-1.3)
[2021-09-14] MEDS: CARVEDILOL 3.125 MG TABLET PO SCH ×2 (08:54→17:33)
[2021-09-14] MEDS: methylPREDNISolone SOD SUCC 40 MG/ML VIAL IV SCH (08:55)
[2021-09-14] MEDS: INSULIN GLARGINE,HUM 300 UNITS/3 ML CARTRIDGE SQ SCH ×2 (09:00→22:08)
[2021-09-14] MEDS: Z GUARD REMEDY PASTE 57 GM TUBE TOP SCH ×2 (09:03→23:27)
[2021-09-14 12:00] VITALS: BP 127/58
[2021-09-14] MEDS: VANCOMYCIN IV 1,000 MG in IV DEXTROSE 5% 250 ML IV SCH (12:23)
[2021-09-14] MEDS: INSULIN REGULAR, HUMAN 300 UNIT/3 ML VIAL SQ PRN ×2 (12:27→16:47)
[2021-09-14] MEDS: CEFTRIAXONE 2 G in IV DEXTROSE 5% 100 ML IV SCH (13:28)
[2021-09-14 16:00] VITALS: BP 133/65
[2021-09-14 20:06] VITALS: BP 137/62
[2021-09-14] MEDS: LATANOPROST EACHEYE SCH (21:52)
[2021-09-14] MEDS: DOCUSATE SODIUM 100 MG CAPSULE PO SCH (21:53)
[2021-09-14] MEDS: INSULIN REGULAR, HUMAN 300 UNITS/3 ML VIAL SQ PRN (22:13)
--- NOTE | 2021-09-14 22:30 | NUR ---
RECEIVED REPORT FROM SHIPMASTER. PATIENT IS ASLEEP IN BED. NO S/S OF ANY SOB OR RESP. DISTRESS NOTED. CONTINUED ON 02 6L NC, CONNECTED TO HUMIDIFIER. ALL NEEDS ATTENDED. WILL CONTINUE TO MONITOR AND ASSESS.
[2021-09-15] MEDS: ALBUTEROL SULFATE 2.5 MG/ 0.5 ML NEBU NEB SCH ×4 (01:30→19:08)
[2021-09-15 04:09] VITALS: BP 135/70
[2021-09-15] MEDS: BENZONATATE 100 MG CAPSULE PO SCH ×3 (06:06→21:00)
[2021-09-15] MEDS: BLOOD SUGAR DIAGNOSTIC 1 EACH STRIP VI SCH ×5 (06:30→20:57)
--- NOTE | 2021-09-15 06:50 | NUR ---
RECHECKED PATIENTS BLOOD SUGAR, 71. PATIENT IS ASYMPTOMATIC. ALL NEEDS ATTENDED.
--- NOTE | 2021-09-15 06:53 | NUR ---
PATIENT AWAKE IN BED. BLOOD SUGAR 42, BUT PATIENT IS AWAKE AND ALERT. ASYMPTOMATIC. PATIENT ASKING FOR JUICE. PATIENT GIVEN JUICE, AND WILL RECHECK. ALL NEEDS ATTENDED. WILL CONTINUE TO MONITOR AND ASSESS.
[2021-09-15] MEDS: methylPREDNISolone SOD SUCC 40 MG/ML VIAL IV SCH (09:07)
[2021-09-15] MEDS: CARVEDILOL 3.125 MG TABLET PO SCH ×2 (09:07→18:30)
[2021-09-15] MEDS: Z GUARD REMEDY PASTE 57 GM TUBE TOP SCH ×2 (09:07→20:40)
[2021-09-15] MEDS: INSULIN REGULAR, HUMAN 300 UNIT/3 ML VIAL SQ PRN (11:15)
[2021-09-15] MEDS: CEFTRIAXONE 2 G in IV DEXTROSE 5% 100 ML IV SCH (12:35)
[2021-09-15] MEDS: IPRATROPIUM BROMIDE 0.5 MG/2.5 ML NEBU NEB PRN (13:54)
[2021-09-15 16:12] VITALS: BP 136/72
[2021-09-15 17:22] VITALS: BP 136/72
--- NOTE | 2021-09-15 19:57 | NUR ---
on 5L NC saturating at 96%. No signs of acute distress. Able to make needs known. 1630 accucheck completed, BSG 127. Compliant with care and medication. Belongings and call light within reach. Safety measures maintained. Will endorse to oncoming shift.
[2021-09-15 20:00] VITALS: BP 134/87
[2021-09-15] MEDS: LATANOPROST EACHEYE SCH (20:40)
[2021-09-15] MEDS: DOCUSATE SODIUM 100 MG CAPSULE PO SCH (20:40)
[2021-09-15] MEDS: INSULIN REGULAR, HUMAN 300 UNITS/3 ML VIAL SQ PRN (20:59)
[2021-09-15] MEDS: LORAZEPAM 0.5 MG TABLET PO PRN (22:44)
[2021-09-16] MEDS: ALBUTEROL SULFATE 2.5 MG/ 0.5 ML NEBU NEB SCH ×4 (01:03→18:56)
[2021-09-16 04:00] VITALS: BP 130/80
--- NOTE | 2021-09-16 05:25 | NUR ---
PATIENT ASLEEP IN BED. SLEPT WELL THROUGHOUT THE NIGHT. VS WNL. CONTINUED ON 5L NC SATING 98%. NO RESP. DISTRESS NOTED. CALL LIGHT IN REACH. ALL NEEDS ATTENDED. WILL CONTINUE TO MONITOR AND ASSESS.
[2021-09-16] MEDS: BENZONATATE 100 MG CAPSULE PO SCH ×3 (06:12→23:00)
[2021-09-16] MEDS: BLOOD SUGAR DIAGNOSTIC 1 EACH STRIP VI SCH ×4 (06:18→20:49)
[2021-09-16 06:45] LABS: MEAN CORPUSCULAR HEMOGLOBIN 32.6 uug (24.7-32.8); MEAN CORPUSCULAR VOLUME 97.3 fL (75.5-95.3); PLATELET COUNT (AUTO) 140 K/uL (179-408)
[2021-09-16 06:58] LABS: CREATININE 0.8 mg/dL (0.6-1.3); MAGNESIUM 1.5 mg/dL (1.8-2.4); PHOSPHOROUS 2.7 mg/dL (2.5-4.9); POTASSIUM 3.9 mmol/L (3.5-5.1)
--- NOTE | 2021-09-16 08:00 | NUR ---
awake. denies of pain, no distress noted, om 5l/nc sat at 95%, repositioned and readied for breakfast, needs attended and met, call light within each
[2021-09-16] MEDS: methylPREDNISolone SOD SUCC 40 MG/ML VIAL IV SCH (08:15)
[2021-09-16] MEDS: CARVEDILOL 3.125 MG TABLET PO SCH ×2 (08:17→17:09)
[2021-09-16] MEDS: Z GUARD REMEDY PASTE 57 GM TUBE TOP SCH ×2 (08:17→20:56)
[2021-09-16] MEDS: IPRATROPIUM BROMIDE 0.5 MG/2.5 ML NEBU NEB PRN ×2 (08:30→13:06)
[2021-09-16] MEDS: MAGNESIUM SULFATE/D5W 100 ML IV SCH ×2 (10:17→12:07)
--- NOTE | 2021-09-16 11:00 | NUR ---
grandson here visiting
[2021-09-16 12:00] VITALS: BP 126/58
--- NOTE | 2021-09-16 12:00 | NUR ---
seen by Dr Magallanes- to be d/cd in am
[2021-09-16] MEDS: INSULIN REGULAR, HUMAN 300 UNIT/3 ML VIAL SQ PRN ×2 (12:23→17:01)
[2021-09-16] MEDS: CEFTRIAXONE 2 G in IV DEXTROSE 5% 100 ML IV SCH (13:20)
[2021-09-16 16:00] VITALS: BP 116/64
--- NOTE | 2021-09-16 17:29 | NUR ---
family at bedside, no distress noted, needs attended
[2021-09-16 20:00] VITALS: BP 138/69
[2021-09-16] MEDS: DOCUSATE SODIUM 100 MG CAPSULE PO SCH (20:42)
[2021-09-16] MEDS: LATANOPROST EACHEYE SCH (20:42)
--- NOTE | 2021-09-16 20:45 | NUR ---
Patient in bed awake and able to make needs known.on 5L NC saturating at 93%. No signs of acute distress.Denies pain at this time.Due meds give and BS checked .Insulin given per sliding scale. All Belongings and call light within reach.will continue to monitor.
[2021-09-16] MEDS: INSULIN REGULAR, HUMAN 300 UNITS/3 ML VIAL SQ PRN (20:55)
[2021-09-17] MEDS: ALBUTEROL SULFATE 2.5 MG/ 0.5 ML NEBU NEB SCH ×3 (01:06→13:04)
[2021-09-17 04:00] VITALS: BP 124/65
[2021-09-17] MEDS: BENZONATATE 100 MG CAPSULE PO SCH ×2 (05:07→14:36)
[2021-09-17] MEDS: BLOOD SUGAR DIAGNOSTIC 1 EACH STRIP VI SCH ×2 (06:48→11:16)
--- NOTE | 2021-09-17 07:25 | NUR ---
Received patient asleep in bed. No signs of acute distress. On 5L O2 via NC. Bed alarm on. Call light within reach. Will continue to monitor.
[2021-09-17 08:08] LABS: CREATININE 0.7 mg/dL (0.6-1.3); MAGNESIUM 1.7 mg/dL (1.8-2.4); POTASSIUM 3.5 mmol/L (3.5-5.1)
[2021-09-17] MEDS: IPRATROPIUM BROMIDE 0.5 MG/2.5 ML NEBU NEB PRN ×2 (08:13→13:04)
[2021-09-17] MEDS: methylPREDNISolone SOD SUCC 40 MG/ML VIAL IV SCH (08:33)
[2021-09-17] MEDS: CARVEDILOL 3.125 MG TABLET PO SCH (08:34)
[2021-09-17] MEDS: Z GUARD REMEDY PASTE 57 GM TUBE TOP SCH (08:35)
[2021-09-17] MEDS: MAGNESIUM SULFATE/D5W 100 ML IV SCH ×2 (11:08→12:12)
[2021-09-17 11:41] VITALS: BP 124/65
[2021-09-17] MEDS: INSULIN REGULAR, HUMAN 300 UNIT/3 ML VIAL SQ PRN (12:14)
[2021-09-17] MEDS: CEFTRIAXONE 2 G in IV DEXTROSE 5% 100 ML IV SCH (13:23)
--- NOTE | 2021-09-17 16:09 | NUR ---
Discharged patient to home with hospice. Patient alert and orientedx3-4. On 5L O2 via NC. No signs of acute distress. Patient denied pain/ discomfort. Belongings accounted for and belongings list signed. Discharge instructions given to patient and patient verbalized understanding. BP 118/69 HR 94. Patient left via ambulance gurney.
== END 2021-09-17 15:50 | disposition hospice, home (50) | DRG 871 ==
LOC: ER 00:35 → TELE3 08:31 → MEDSURG3 09-11 11:22
PROVIDERS: ADMIT Registered Nurse; ATTEND Student in an Organized Health Care Education/Training Program
PROC: 05HB33Z Insertion of Infusion Device into Right Basilic Vein, Percutaneous Approach (ICD-10-PCS; 2021-09-06)
PROC: 0W9B3ZX Drainage of Left Pleural Cavity, Percutaneous Approach, Diagnostic (ICD-10-PCS; principal; 2021-09-08)
DX: A41.9 Sepsis, unspecified organism (principal); J96.01 Acute respiratory failure with hypoxia; J86.9 Pyothorax without fistula; G92.8 Other toxic encephalopathy; J15.8 Pneumonia due to other specified bacteria; E43 Unspecified severe protein-calorie malnutrition; I50.33 Acute on chronic diastolic (congestive) heart failure; N17.0 Acute kidney failure with tubular necrosis; C34.92 Malignant neoplasm of unspecified part of left bronchus or lung; C34.91 Malignant neoplasm of unspecified part of right bronchus or lung; I82.502 Chronic embolism and thrombosis of unspecified deep veins of left lower extremity; I31.3 Pericardial effusion (noninflammatory); L03.116 Cellulitis of left lower limb; E87.1 Hypo-osmolality and hyponatremia; R18.8 Other ascites; D68.59 Other primary thrombophilia; J94.8 Other specified pleural conditions; J98.11 Atelectasis; Z66 Do not resuscitate; Z79.01 Long term (current) use of anticoagulants; E03.9 Hypothyroidism, unspecified; Z20.822 Contact with and (suspected) exposure to COVID-19; Z87.891 Personal history of nicotine dependence; E83.42 Hypomagnesemia; E86.0 Dehydration; F32.A Depression, unspecified; E87.5 Hyperkalemia; E87.6 Hypokalemia; I11.0 Hypertensive heart disease with heart failure; K44.9 Diaphragmatic hernia without obstruction or gangrene; I25.10 Atherosclerotic heart disease of native coronary artery without angina pectoris; Z74.09 Other reduced mobility; E83.39 Other disorders of phosphorus metabolism; Z86.711 Personal history of pulmonary embolism; E66.9 Obesity, unspecified; Z68.30 Body mass index [BMI] 30.0-30.9, adult; E11.65 Type 2 diabetes mellitus with hyperglycemia; D63.8 Anemia in other chronic diseases classified elsewhere; G31.84 Mild cognitive impairment of uncertain or unknown etiology; D75.839 Thrombocytosis, unspecified; Z79.4 Long term (current) use of insulin; R93.89 Abnormal findings on diagnostic imaging of other specified body structures; E11.649 Type 2 diabetes mellitus with hypoglycemia without coma; E86.1 Hypovolemia
CPT/HCPCS: 32555; 36415; 36600; 70030-TC; 71045; 71250; 83605; 83615; 83735; 83935; 83986; 84100; 84155; 84300; 84443; 85025; 85730; 87040; 87070; 87075; 87086; 87205; 87400; 88108-TC; 88312-TC; 93005; 93307; 93880; 94640; 94664; 97161; A4217; A4663; A6209; G0378; J0456; J0696; J1815; J1940; J1956; J2920; J3370; J3475; J3490; J3590; J7030; J7040; J7042; J7060; U0003